=== PATIENT | female | born 1965 | race Caucasian/White ===

== ENCOUNTER → 2016-04-26 | Outpatient (CLI) | payer OTHER ==
[~2016-04-26] MED LIST: /FENT25PA; /FENT75PA; ACET500C PO; ALBUTEROL INHALATION; AMBI10TA PO; AMBIEN10 PO; AMOXIL875 PO; ARTHROTEC; ARTHROTEC PO; AUG875 PO; BACTRIMDS PO; COLA100C2; COMPOUND CREAM TOP; CYMBALTA30 PO; CYMBALTA60 PO; DICL25TA OR; DOXY100T PO; ESTR125TA; FLAG500T OR; FLAGYL250 PO; FLECTOR PATCH; FLEX5TAB3 PO; FLEXERIL PO; FLEXERIL10 PO; GABA-279 PO; HABITROL2 TOPICAL; HYDR-3719 PO; LIDO1DIS2 TD; LIDO5DIS EX; LIDOPOW; MAXALYMLT1 PO; MIDRIN; MOME50SP; MORP30TA2 PO; MS C15TA5 PO; MS C200T PO; MS C30TA PO; NEUR300C; NEUR300C PO; NICO21DI4; OXYC10TA12; OXYC1TAB15 PO; PAMELOR PO; PAXIL20 PO; PREG25CA; PREMARIN TD; REQU0.5T PO; SOMA250T; THERGRAN PO; TRAM50TA2; TYLENOL#3 PO; VICO5TAB; VICO5TAB PO; VITA50003 PO; VITAMIN D50000 UNT PO; VOLT1GEL EX; ZANA4CAP OR; ZITHROM500 PO; ZYRT10CA PO; [UNRECOGNIZED DRUG - OTHER] PO; fentanyl patch TOP; maxalt
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
== END ==
LOC: M PAIN 11:00
PROVIDERS: ATTEND Anesthesiology
DX: M51.16 Intervertebral disc disorders with radiculopathy, lumbar region (principal); M51.17 Intervertebral disc disorders with radiculopathy, lumbosacral region; M47.816 Spondylosis without myelopathy or radiculopathy, lumbar region; M47.817 Spondylosis without myelopathy or radiculopathy, lumbosacral region; Z79.891 Long term (current) use of opiate analgesic; Z79.899 Other long term (current) drug therapy; Z88.0 Allergy status to penicillin; Z88.1 Allergy status to other antibiotic agents; Z88.8 Allergy status to other drugs, medicaments and biological substances

== ENCOUNTER → 2016-05-24 | Outpatient (CLI) | payer OTHER ==
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
== END ==
LOC: M PAIN 14:00
PROVIDERS: ATTEND Anesthesiology
DX: Z09 Encounter for follow-up examination after completed treatment for conditions other than malignant neoplasm (principal); G89.29 Other chronic pain; M51.16 Intervertebral disc disorders with radiculopathy, lumbar region; M51.17 Intervertebral disc disorders with radiculopathy, lumbosacral region; M47.816 Spondylosis without myelopathy or radiculopathy, lumbar region; M47.817 Spondylosis without myelopathy or radiculopathy, lumbosacral region; Z88.0 Allergy status to penicillin; Z91.040 Latex allergy status; Z88.8 Allergy status to other drugs, medicaments and biological substances; Z79.891 Long term (current) use of opiate analgesic; Z79.899 Other long term (current) drug therapy

== ENCOUNTER → 2016-06-15 | Outpatient (CLI) | payer OTHER ==
[~2016-06-15] MED LIST changes: +BUPIVACAINE HCL 0.25% 30 ML VIAL As Ordered ONE; +ISOVUE-M 300 61% 15ML VIAL (Q9967) As Ordered ONE; +LIDOCAINE 1% SDV INJ 30 ML VIAL As Ordered ONE; +TRIAMCINOLONE ACETONIDE SUSP 40 MG/ML VIAL (J3301) As Ordered ONE
--- NOTE | 2016-06-15 16:50 | REP ---
FLUOROSCOPIC GUIDANCE FOR RIGHT SACROILIAC INJECTION: 06/15/2016. Four images from C-arm fluoroscopy provided to Dr. Paez of the pain clinic for right sacroiliac joint. Clinical history: Back pain. Findings: There is a needle in the middle one-third of the region of the right sacroiliac joint on image 1, angled superiorly on image 2 and inferiorly on image 3, again superiorly on image 4. Fluoroscopy time: 8 seconds. Signed by Sedrick Gill MD 06/15/2016 04:54 P
--- NOTE | 2016-06-21 00:43 | ECWPNPC ---
PATIENT NAME: NEENA KIM : 1965 GENDER: FEMALE VISIT DATE: 06/15/2016 DISCHARGE DATE: 06/15/16 1456 VISIT LOCKED DATE TIME: PHYSICIAN: JOSE DIAZ RESOURCE: JOSE DIAZ REASON FOR APPOINTMENT 1. LFBT HISTORY OF PRESENT ILLNESS HISTORY OF PRESENT ILLNESS: PAIN THE PATIENT DESCRIBES THE PAIN... FALL RISK SCREENING: SCREENING :NO FALLS IN THE PAST YEAR CURRENT MEDICATIONS TAKING OXYCODONE-ACETAMINOPHEN 7.5-325 MG TABLET 1 TABLET ORALLY CODE D FOR CHRONIC PAIN 1Q6H MDD4 NEEDED, NOTES: 06-15-16 0700 TAKING MORPHINE SULFATE ER 30 MG TABLET EXTENDED RELEASE 1 TABLET ORALLY CODE D CHRONIC PAIN EVERY 12 HRS MDD=2, NOTES: 06-15-16 0700 TAKING VITAMIN D3 51663 UNIT TABLET ORALLY MONTHLY, NOTES: DUE THIS WEEKEND DISCONTINUED GABAPENTIN 300 MG CAPSULE 1 CAPSULE ORALLY BEFORE BEDTIME FOR PAIN DISCONTINUED ROPINIROLE HCL 2 MG TABLET DIRECTED ORALLY AT HS DISCONTINUED ROPINIROLE HCL 2 MG TABLET 1 TABLET 1 TO 3 HOURS BEFORE BEDTIME ORALLY ONCE A DAY, NOTES: HAS RUN OUT DISCONTINUED ROCEPHIN 1 GM SOLUTION RECONSTITUTED DIRECTED INJECTION QD DISCONTINUED LIDOCAINE HCL 1 % 10ML SOLUTION DIRECTED FOR RECONSTITUTION INJECTION QD DISCONTINUED VALIUM 5 MG TABLET 1 TAB(S) ORALLY QID PRN MDD4 MEDICATION LIST REVIEWED AND RECONCILED WITH THE PATIENT PAST MEDICAL HISTORY NO MAJOR MEDICAL EXCEPT CHRONIC BACK PAIN ALLERGIES ERYTHROMYCIN: RASH, THROAT SWELLING: ALLERGY LATEX (FOR ALLERGY USE ONLY): RASH: ALLERGY PROPOXYPHENE: NAUSEA, VOMITING: SIDE EFFECTS KETOROLAC TROMETHAMINE: NAUSEA, VOMITING: SIDE EFFECTS CELEBREX: NAUSEA: SIDE EFFECTS DURAMYCIN: RASH, THROAT SWELLING: ALLERGY QUINOLONES: RASH, THROAT SWELLING: ALLERGY GABAPENTIN: HEADACHE: SIDE EFFECTS SOCIAL HISTORY GENERAL: TOBACCO USE ARE YOU A:NONSMOKER LEARNING BARRIERS / SPECIAL NEEDS ORIENTED TO PLAN OF CARE: PATIENT, PAIN MANAGEMENT PATIENT, ORIENTED TO PLAN OF CARE: PATIENT, PAIN MANAGEMENT PATIENT. NEW PATIENT PAIN DIARY TODAY'S VISITNOTES FROM 0-10, WHAT LEVEL IS YOUR PAIN TODAY?0 PAIN CLINIC PFS, CLERGY, PUBLIC HEALTH REFERRALS PFS REFERRAL NEEDED?NO CLERGY REFERRAL NEEDED?NO PUBLIC HEALTH REFERRAL NEEDED?NO WAS THE PROVIDER NOTIFIED OF ANY PERTINENT INFO?NO PFS REFERRAL NEEDED?NO CLERGY REFERRAL NEEDED?NO PUBLIC HEALTH REFERRAL NEEDED?NO WAS THE PROVIDER NOTIFIED OF ANY PERTINENT INFO?NO REVIEW OF SYSTEMS CONSTITUTIONAL: ANY CHANGE IN YOUR MEDICAL CONDITION? NO . CHILLS NO . FEVER NO . INFECTION: DO YOU HAVE NEW INFECTIONS? NO . DO YOU HAVE HISTORY OF MRSA? NO . MUSCULOSKELETAL: ANY NEW PATTERNS OF PAIN OR NUMBNESS? NO . GASTROENTEROLOGY: ANY NEW CHANGE IN BOWEL CONTROL? NO . GENITOURINARY: ANY NEW CHANGE IN BLADDER CONTROL? NO . IS THERE A CHANCE YOU COULD BE ? NO . HEMATOLOGY/LYMPH: DO YOU TAKE ANY BLOOD THINNERS? (FOR EXAMPLE- COUMADIN, PLAVIX, AGGRENOX, PLATEL, PRADAXA, OR XARELTO) NO . WHEN WAS YOUR LAST DOSE? DATE: TIME: . NEUROLOGY: HAVE YOU FALLEN IN THE PAST 6 MONTHS? NO . ANY NEW EXTREMITY NUMBNESS OR WEAKNESS? NO . CARDIOLOGY: DO YOU HAVE A PACEMAKER OR DEFIBRILLATOR? NO . RESPIRATORY: HAVE YOU BEEN SICK IN THE PAST WEEK? NO . FEVER NO . FLU LIKE SYMPTOMS? NO . COUGH NO . INTEGUMENTARY: DO YOU HAVE ANY RASHES OR OPEN SORES? NO . ALLERGIC/IMMUNO: ARE YOU ALLERGIC TO SHELLFISH OR IV DYE? NO . ANY NEW ALLERGIES? NO . PSYCHIATRIC: DO YOU HAVE THOUGHTS OF HURTING YOURSELF OR SOMEONE ELSE? NO . ARE YOU ABUSED, NEGLECTED, OR IN AN UNSAFE ENVIRONMENT? NO . ENDOCRINOLOGY: ARE YOU DIABETIC? NO . OTHER: DO YOU NEED ANY PRESCRIPTIONS? NO . IF YES, PLEASE LIST: ____ . ANY NEW PROBLEMS WITH YOUR MEDICATIONS? NO . WHEN DID YOU LAST EAT? 06-14-16 PM . WHEN DID YOU LAST DRINK? 06-15-16 1300 . WHAT DID YOU LAST DRINK? BLACK COFFEE . NAME OF PERSON DRIVING YOU HOME? . DO YOU HAVE ANY OTHER QUESTIONS OR CONCERNS NO . REVIEWED BY: PROVIDER: . VITAL SIGNS WT 150 LBS, HT 67 IN, BMI 23.49 INDEX, BP 133/94 MM HG, HR 63 /MIN, RR 16 /MIN, TEMP 96.0 F, OXYGEN SAT % 96, NA INITIALS TL 1354, REVIEWED BY: CM. ASSESSMENTS SACROILIITIS, NOT ELSEWHERE CLASSIFIED - M46.1 (PRIMARY) PROCEDURES PN SI PRE PROCEDURE DIAGNOSIS SACROILIITIS, SACROILIAC JOINT DYSFUNCTION POST PROCEDURE DIAGNOSIS SACROILIITIS, SACROILIAC JOINT DYSFUNCTION PROCEDURE ., RIGHT SACROILIAC JOINT BLOCK SURGEON DR. JOSE DIAZ [employer]INE ELECTRICIAN APPRENTICE NONE ANESTHESIA LOCAL PRE PROCEDURE NOTE PATIENT WITH HISTORY OF CHRONIC LOW BACK PAIN. I EVALUATED THE PATIENT AND REVIEWED THE CHART. I WENT OVER THE RISKS, ALTERNATIVES, AND BENEFITS ASSOCIATED WITH THIS PROCEDURE. THE PATIENT WOULD LIKE TO PROCEED AND GAVE CONSENT TO PERFORM THE PROCEDURE. THE PATIENT DENIES UNEXPLAINABLE WEIGHT LOSS, FEVER, CHILLS, OR NEW CHANGES IN URINARY OR BOWEL CONTROL. DESCRIPTION OF PROCEDURE THE PATIENT WAS BROUGHT TO THE PROCEDURE ROOM AND PLACED IN THE PRONE POSITION. THE LUMBOSACRAL AREA WAS CLEANED WITH CHLORAPREP SOLUTION AND DRAPED ASEPTICALLY. THE PROCEDURE WAS DONE UNDER STERILE CONDITIONS. I CHECKED LATERALITY AND THE LEVEL WHERE THE PROCEDURE WAS GOING TO BE PERFORMED WITH THE PATIENT AND THE SUPPORTING STAFF AT THE MOMENT OF THE TIME OUT IN THE PROCEDURE ROOM. UNDER FLUOROSCOPIC GUIDANCE, TARGET POINT WAS SELECTED AT THE LOWER BORDER OF THE RIGHT SACROILIAC JOINT. TARGET POINT WAS SELECTED AFTER MEDIAL ROTATION AND TILT OF THE MAGNIFIER OF THE C-ARM. LIDOCAINE WAS USED TO NUMB THE SKIN AND SUBCUTANEOUS TISSUE BELOW IT. A SPINAL NEEDLE, 22-GAUGE, WAS ADVANCED UNDER FLUOROSCOPIC GUIDANCE AND FOLLOWING PATIENT FEEDBACK UNTIL THE TARGET AREA WAS TOUCHED. THE POSITION OF THE NEEDLE WAS VERIFIED WITH AP AND LATERAL VIEWS. AFTER PROPER POSITION OF THE NEEDLE WAS ACHIEVED, ISOVUE M DYE 30%, 0.25 ML, WAS INJECTED SHOWING SPREAD OF THE DYE. THEN, A SOLUTION OF 20 MG OF KENALOG WAS INJECTED IN RIGHT JOINT WITH 3 ML OF BUPIVACAINE 0.125%. THERE WAS NO EVIDENCE OF BLOOD, PARESTHESIA OR CEREBROSPINAL FLUID DURING THE PROCEDURE. THE PATIENT WAS SENT TO THE RECOVERY ROOM. THE PATIENT WAS MOVING THE EXTREMITIES AND DOING WELL. THERE WAS NO COMPLICATION DURING THE PROCEDURE. FLUOROSCOPY TIME WAS 5 SECONDS POST PROCEDURE NOTE THE PATIENT WILL BE SEEN IN A FOLLOW UP IN THE NEXT FEW WEEKS. INSTRUCTIONS WERE GIVEN, QUESTIONS WERE ANSWERED, AND THE PATIENT EXPRESSED UNDERSTANDING AND AGREED WITH THE PLAN. INSTRUCTIONS WERE GIVEN, QUESTIONS WERE ANSWERED, PATIENT REPORTS UNDERSTANDING AND AGREES WITH THE PLAN. I, RAMIREZ CHANG, DOCUMENTED THE ABOVE INFORMATION ACTING A SCRIBE FOR DR. DIAZ. I HAVE REVIEWED THE ABOVE DOCUMENT, WRITTEN BY RAMIREZ CHANG SCRIBAntoine AND I VERIFY THAT IT IS ACCURATE. DIAGNOSTIC IM[facility] FLUORO GUIDANCE (PAIN)[id number] PROCEDURE CODES 12331 INJECT SACROILIAC JOINT 6045F RADXPS IN END [id number] PXD DISPOSITION & COMMUNICATION FOLLOW UP 3 WEEKS ELECTRONICALLY SIGNED BY JOSE DIAZ MD ON 06/20/2016 AT 06:50 AM EST DISCLAIMER : THIS IS A VISIT SUMMARY EXTRACTED FROM THE [employer] CHART. IT IS NOT A COPY OF THE [employer] PROGRESS NOTE. MTDD
== END ==
LOC: M PAIN 14:00
PROVIDERS: ATTEND Anesthesiology
DX: G89.29 Other chronic pain (principal); M46.1 Sacroiliitis, not elsewhere classified; M54.5 Low back pain; Z79.891 Long term (current) use of opiate analgesic; Z79.899 Other long term (current) drug therapy; Z88.1 Allergy status to other antibiotic agents; Z91.040 Latex allergy status; Z88.8 Allergy status to other drugs, medicaments and biological substances
CPT/HCPCS: G0260; J3301; Q9967

== ENCOUNTER → 2016-07-24 | Outpatient (REF) | payer MEDICARE ==
[~2016-07-24] MED LIST changes: -BUPIVACAINE HCL 0.25% 30 ML VIAL As Ordered ONE; -ISOVUE-M 300 61% 15ML VIAL (Q9967) As Ordered ONE; -LIDOCAINE 1% SDV INJ 30 ML VIAL As Ordered ONE; -TRIAMCINOLONE ACETONIDE SUSP 40 MG/ML VIAL (J3301) As Ordered ONE
[2016-07-24 11:20] LABS: BASO % 0.7 % (0.0-1.0); EOS # 0.2 K/mm3 (0.0-0.50); EOS % 3.2 % (0.0-3.0); LARGE UNSTAINED CELL # 0.1 K/mm3 (0.0-0.4); LARGE UNSTAINED CELL % 1.6 % (0.0-4.0); LYMPH # 1.8 K/mm3 (1.5-4.5); LYMPH % 24.8 % (24.0-44.0); MEAN CORPUSCULAR HEMOGLOBIN 29.7 pg (27.0-33.0); MEAN CORPUSCULAR HGB CONC 32.6 g/dl (32.0-36.5); MEAN CORPUSCULAR VOLUME 91.3 fl (80.0-96.0); MONO # 0.4 K/mm3 (0.0-0.8); MONO % 5.2 % (0.0-5.0); NEUTROPHILS # 4.5 K/mm3 (1.8-7.7); NEUTROPHILS % 64.6 % (36.0-66.0); PLATELET COUNT, AUTOMATED 307 k/mm3 (150-450); RED CELL DISTRIBUTION WIDTH 13.4 % (11.5-14.5)
[2016-07-24 11:57] LABS: ALBUMIN/GLOBULIN RATIO 1.38 (1.00-1.93); ALKALINE PHOSPHATASE 96 U/L (45-117); ALT/SGPT 20 U/L (12-78); ANION GAP 5 MEQ/L (8-16); AST/SGOT 18 U/L (15-37); BILIRUBIN,TOTAL 0.3 MG/DL (0.2-1.0); BLOOD UREA NITROGEN 14 MG/DL (7-18); CALCIUM LEVEL 9.5 MG/DL (8.5-10.1); CARBON DIOXIDE LEVEL 30 MEQ/L (21-32); CHLORIDE LEVEL 108 MEQ/L (98-107); CREATININE FOR GFR 0.81 MG/DL (0.55-1.02); GLOMERULAR FILTRATION RATE > 60.0 (>58); GLUCOSE, FASTING 91 MG/DL (70-105); MAGNESIUM LEVEL 2.3 MG/DL (1.8-2.4); POTASSIUM SERUM 4.5 MEQ/L (3.5-5.1); SODIUM LEVEL 143 MEQ/L (136-145); TOTAL PROTEIN 6.9 GM/DL (6.4-8.2)
[2016-07-24 12:09] LABS: ERYTHROCYTE SEDIMENTATION RATE 4 mm/hr (0-20)
[2016-07-27 08:06] LABS: Lyme Disease IgG Ab 18 kDa Ban Absent (.); Lyme Disease IgG Ab 23 kDa Ban Absent (.); Lyme Disease IgG Ab 28 kDa Ban Absent (.); Lyme Disease IgG Ab 30 kDa Ban Absent (.); Lyme Disease IgG Ab 39 kDa Ban Absent (.); Lyme Disease IgG Ab 41 kDa Ban Absent (.); Lyme Disease IgG Ab 45 kDa Ban Absent (.); Lyme Disease IgG Ab 58 kDa Ban Absent (.); Lyme Disease IgG Ab 66 kDa Ban Absent (.); Lyme Disease IgG Ab 93 kDa Ban Absent (.); Lyme Disease IgG West Blot Int Negative (.); Lyme Disease IgG/IgM Antibodie <0.91 ISR (0.00-0.90); Lyme Disease IgM Ab 23 kDa Ban Absent (.); Lyme Disease IgM Ab 39 kDa Ban Absent (.); Lyme Disease IgM Ab 41 kDa Ban Absent (.); Lyme Disease IgM Ab Quantitati 2.31 index (0.00-0.79); Lyme Disease IgM West Blot Int Negative (.)
== END ==
LOC: M SFHCPLAZ 10:22
PROVIDERS: ATTEND Internal Medicine Infectious Disease
DX: M25.50 Pain in unspecified joint (principal); R61 Generalized hyperhidrosis; R76.8 Other specified abnormal immunological findings in serum
CPT/HCPCS: 36415; 80053; 83735; 85025; 85652; 86038; 86140; 86200; 86431; 86617; 87040; G0463

== ENCOUNTER → 2016-08-03 | Outpatient (CLI) | payer MEDICARE ==
--- NOTE | 2016-08-03 16:00 | REP ---
MRI BRAIN WITHOUT CONTRAST: HISTORY: Headache. There are no areas of abnormal signal intensity in the brain. There is no intraparenchymal hemorrhage, infarct, mass or midline shift. The ventricular system is normal in appearance. There is no extracerebral collection. The visualized sinuses are clear. IMPRESSION: There is no intracranial lesion. Signed by Mayo Coronado MD 08/03/2016 04:04 P
== END ==
LOC: M RAD 14:27
PROVIDERS: ATTEND Internal Medicine Infectious Disease
DX: R51 Headache (principal)

== ENCOUNTER → 2016-09-20 | Outpatient (CLI) | payer OTHER, MEDICARE ==
--- NOTE | 2016-10-02 02:37 | ECWPNPC ---
PATIENT NAME: NEENA KIM : 1965 GENDER: FEMALE VISIT DATE: 09/20/2016 DISCHARGE DATE: 09/20/16 1621 VISIT LOCKED DATE TIME: PHYSICIAN: JOSE DIAZ RESOURCE: JOSE DIAZ REASON FOR APPOINTMENT 1. BACK HISTORY OF PRESENT ILLNESS GENERAL: 50 YEAR OLD FEMALE PATIENT WITH HISTORY OF CHRONIC BACK PAIN. PATIENT DESCRIBES THE PAIN SHARP, THROBBING, AND HAVING IT ALL THE TIME WITH A PAIN SCORE OF 7/10 ON TODAY'S VISIT. 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 PATIENT REPORTS THAT SHE DOES SOME PT EXERCISES AT HOME. PATIENT RECEIVED A RIGHT SACROILIAC JOINT BLOCK ON 06/15/2016 AND STATES THAT SHE HAD OVER 3 MONTHS OF PAIN RELIEF, WITH OVER 50 PERCENT IN DECREASE IN PAIN WITH INCREASE MOBILITY AND FUNCTIONALITY. PATIENT STATES THAT AT THIS TIME THE PAIN HAS RETURNED AND INQUIRED WHETHER SHE COULD GET ANOTHER INJECTION. PATIENT DENIES UNEXPLAINABLE WEIGHT LOSS, FEVER, CHILLS, NEW CHANGES ON HER URINARY OR BOWEL CONTROL. CURRENT MEDICATIONS TAKING VITAMIN D3 91075 UNIT TABLET ORALLY MONTHLY, NOTES: DUE THIS WEEKEND TAKING MORPHINE SULFATE ER 30 MG TABLET EXTENDED RELEASE 1 TABLET ORALLY CODE D CHRONIC PAIN EVERY 12 HRS MDD=2, NOTES: 06-15-16 0700 TAKING OXYCODONE-ACETAMINOPHEN 7.5-325 MG TABLET 1 TABLET ORALLY 1Q6H MDD4 NEEDED, NOTES: 06-15-16 0700 MEDICATION LIST REVIEWED AND RECONCILED WITH THE PATIENT PAST MEDICAL HISTORY NO MAJOR MEDICAL EXCEPT CHRONIC BACK PAIN LYME DISEASE PER ALLERGIES ERYTHROMYCIN: RASH, THROAT SWELLING: ALLERGY LATEX (FOR ALLERGY USE ONLY): RASH: ALLERGY PROPOXYPHENE: NAUSEA, VOMITING: SIDE EFFECTS KETOROLAC TROMETHAMINE: NAUSEA, VOMITING: SIDE EFFECTS CELEBREX: NAUSEA: SIDE EFFECTS DURAMYCIN: RASH, THROAT SWELLING: ALLERGY QUINOLONES: RASH, THROAT SWELLING: ALLERGY GABAPENTIN: HEADACHE: SIDE EFFECTS VITAL SIGNS WT 155.6 LBS, HT 67 IN, BMI 24.37 INDEX, BP 142/84 MM HG, HR 51 /MIN, RR 18 /MIN, TEMP 98.0 F, OXYGEN SAT % 99%, NA INITIALS SC 15:50, REVIEWED BY: KG. EXAMINATION GENERAL: PATIENT IS ALERT O X 3 AND COOPERATIVE. THERE IS TENDERNESS IN THE SACROILIAC JOINTS. FABERE TEST IS POSITIVE ON THE RIGHT SIDE. ASSESSMENTS SACROILIITIS, NOT ELSEWHERE CLASSIFIED - M46.1 (PRIMARY) TREATMENT SACROILIITIS, NOT ELSEWHERE CLASSIFIED NOTES: WE DISCUSSED SEVERAL ISSUES WITH MS. KIM'S PAIN MANAGEMENT CASE. AT THIS TIME THE PATIENT WILL RECEIVE A REFILL OF MORPHINE AND OXYCODONE, PATIENT IS TAKING THESE MEDICATIONS FOR THE SOMATIC PAIN. DUE TO THE PREVIOUS INJECTION PROVIDING GOOD PAIN RELIEF FOR THE PATIENT FOR 3 MONTHS, AFTER EXAMINING THE PATIENT SHE IS A GOOD CANDIDATE FOR ANOTHER RIGHT SACROILIAC INJECTION. WE DISCUSSED THE RISK, BENEFITS, AND ALTERNATIVES AND THE PATIENT WOULD LIKE TO PROCEED. PATIENT WILL BE BOOKED PENDING APPROVAL. PATIENT WILL FOLLOW UP WITH ME IN 3 WEEKS. UTOX DONE ON 01/22/2016 SHOWS CONSISTENT RESULTS. PATIENT DID NOT BRING HER MEDICATIONS TODAY AND WAS ADVISED TO DO SO FOR EVERY FOLLOW UP VISIT. INSTRUCTIONS WERE GIVEN, QUESTIONS WERE ANSWERED, PATIENT REPORTS UNDERSTANDING AND AGREES WITH THE PLAN. I, RAMIREZ CHANG, DOCUMENTED THE ABOVE INFORMATION ACTING A SCRIBE FOR DR. DIAZ. I HAVE REVIEWED THE ABOVE DOCUMENT, WRITTEN BY RAMIREZ CHANG SCRIBAntoine AND I VERIFY THAT IT IS ACCURATE. OTHERS REFILL MORPHINE SULFATE ER TABLET EXTENDED RELEASE, 30 MG, 1 TABLET, ORALLY CODE D CHRONIC PAIN, EVERY 12 HRS MDD=2, 30 DAY(S), 60, REFILLS 0, NOTES: 06-15-16 0700 REFILL OXYCODONE-ACETAMINOPHEN TABLET, 7.5-325 MG, 1 TABLET, ORALLY, 1Q6H MDD4 NEEDED, 30 DAY(S), 90, REFILLS 0, NOTES: 06-15-16 0700 PROCEDURES PN WORKMANS' COMP OPINION IN YOUR OPINION, WAS THE INCIDENT THAT THE PATIENT DESCRIBED THE COMPETENT MEDICAL CAUSE OF THIS INJURY/ILLNESS? YES ARE THE PATIENT'S COMPLAINTS CONSISTENT WITH HIS/HER HISTORY OF THE INJURY/ILLNESS? YES IS THE PATIENT'S HISTORY OF THE INJURY/ILLNESS CONSISTENT WITH YOUR OBJECTIVE FINDING? YES WHAT IS THE PERCENTAGE OF TEMPORARY IMPAIRMENT? MODERATE TO MARKED = 66.7% IS THE PATIENT WORKING? YES DOCTOR ON SITE: JOSE BUSTAMANTE MD PREVENTIVE MEDICINE SIJ INFORMATION REVIEWED WITH PT. PROCEDURE CODES FA211 ESTABILISHED PATIENT [facility] FACILITY CHARGE G5617 PAIN ASSESS POS TOOL F/U PLAN DOC G8427 DOC MEDS VERIFIED W/PT OR RE DISPOSITION & COMMUNICATION FOLLOW UP 3 WEEKS ELECTRONICALLY SIGNED BY JOSE DIAZ MD ON 10/01/2016 AT 03:29 PM EDT DISCLAIMER : THIS IS A VISIT SUMMARY EXTRACTED FROM THE [employer] CHART. IT IS NOT A COPY OF THE [employer] PROGRESS NOTE. ALD
== END ==
LOC: M PAIN 15:00
PROVIDERS: ATTEND Anesthesiology
DX: G89.29 Other chronic pain (principal); M46.1 Sacroiliitis, not elsewhere classified; R76.8 Other specified abnormal immunological findings in serum; Z91.040 Latex allergy status; Z88.1 Allergy status to other antibiotic agents; Z88.8 Allergy status to other drugs, medicaments and biological substances; Z79.891 Long term (current) use of opiate analgesic; Z79.899 Other long term (current) drug therapy

== ENCOUNTER → 2016-10-12 | Outpatient (CLI) | payer OTHER, MEDICARE ==
[~2016-10-12] MED LIST changes: -MS C30TA PO; +MS C30TA6 PO; -REQU0.5T PO; +REQU1TAB15 PO; +VITA1CAP40 PO; -VITA50003 PO
--- NOTE | 2016-10-21 23:58 | ECWPNPC ---
PATIENT NAME: NEENA KIM : 1965 GENDER: FEMALE VISIT DATE: 10/12/2016 DISCHARGE DATE: 10/12/16 1500 VISIT LOCKED DATE TIME: PHYSICIAN: JOSE DIAZ RESOURCE: JOSE DIAZ REASON FOR APPOINTMENT 1. W/C BACK PAIN HISTORY OF PRESENT ILLNESS HISTORY OF PRESENT ILLNESS: PAIN THE PATIENT DESCRIBES THE PAIN... 50 YEAR OLD FEMALE PATIENT WITH HISTORY OF CHRONIC BACK PAIN. PATIENT DESCRIBES THE PAIN SHARP, THROBBING, AND HAVING IT ALL THE TIME WITH A PAIN SCORE OF 7/10 ON TODAY'S VISIT. 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 PATIENT REPORTS THAT SHE DOES SOME PHYSICAL THERAPY EXERCISES AT HOME. PATIENT IS CURRENTLY WAITING FOR A SACROILIAC JOINT INJECTION APPROVAL. PATIENT DENIES UNEXPLAINABLE WEIGHT LOSS, FEVER, CHILLS, NEW CHANGES ON HER URINARY OR BOWEL CONTROL. FALL RISK SCREENING: SCREENING :NO FALLS IN THE PAST YEAR CURRENT MEDICATIONS TAKING VITAMIN D3 09489 UNIT TABLET ORALLY MONTHLY TAKING MORPHINE SULFATE ER 30 MG TABLET EXTENDED RELEASE 1 TABLET ORALLY CODE D CHRONIC PAIN EVERY 12 HRS MDD=2 TAKING OXYCODONE-ACETAMINOPHEN 7.5-325 MG TABLET 1 TABLET ORALLY 1Q6H MDD4 NEEDED TAKING LORATADINE 10 MG TABLET 1 TABLET ORALLY ONCE A DAY MEDICATION LIST REVIEWED AND RECONCILED WITH THE PATIENT PAST MEDICAL HISTORY NO MAJOR MEDICAL EXCEPT CHRONIC BACK PAIN LYME DISEASE PER NEWLY DIAGNOSED ALLERGIC TO HAY 09/2016 ALLERGIES ERYTHROMYCIN: RASH, THROAT SWELLING: ALLERGY LATEX (FOR ALLERGY USE ONLY): RASH: ALLERGY PROPOXYPHENE: NAUSEA, VOMITING: SIDE EFFECTS KETOROLAC TROMETHAMINE: NAUSEA, VOMITING: SIDE EFFECTS CELEBREX: NAUSEA: SIDE EFFECTS DURAMYCIN: RASH, THROAT SWELLING: ALLERGY QUINOLONES: RASH, THROAT SWELLING: ALLERGY GABAPENTIN: HEADACHE: SIDE EFFECTS REVIEW OF SYSTEMS REVIEWED BY: PROVIDER: JOSE DIAZ MD . CONSTITUTIONAL: ANY CHANGE IN YOUR MEDICAL CONDITION? NO . CHILLS NO . FEVER NO . INFECTION: DO YOU HAVE NEW INFECTIONS? NO . DO YOU HAVE HISTORY OF MRSA? NO . MUSCULOSKELETAL: ANY NEW PATTERNS OF PAIN OR NUMBNESS? YES . GASTROENTEROLOGY: ANY NEW CHANGE IN BOWEL CONTROL? NO . GENITOURINARY: ANY NEW CHANGE IN BLADDER CONTROL? NO . IS THERE A CHANCE YOU COULD BE ? NO . HEMATOLOGY/LYMPH: DO YOU TAKE ANY BLOOD THINNERS? (FOR EXAMPLE- COUMADIN, PLAVIX, AGGRENOX, PLATEL, PRADAXA, OR XARELTO) NO . WHEN WAS YOUR LAST DOSE? DATE: TIME: . NEUROLOGY: HAVE YOU FALLEN IN THE PAST 6 MONTHS? NO . ANY NEW EXTREMITY NUMBNESS OR WEAKNESS? NO . CARDIOLOGY: DO YOU HAVE A PACEMAKER OR DEFIBRILLATOR? NO . RESPIRATORY: HAVE YOU BEEN SICK IN THE PAST WEEK? NO . FEVER NO . FLU LIKE SYMPTOMS? NO . COUGH NO . INTEGUMENTARY: DO YOU HAVE ANY RASHES OR OPEN SORES? NO . ALLERGIC/IMMUNO: ARE YOU ALLERGIC TO SHELLFISH OR IV DYE? NO . ANY NEW ALLERGIES? NO . PSYCHIATRIC: DO YOU HAVE THOUGHTS OF HURTING YOURSELF OR SOMEONE ELSE? NO . ARE YOU ABUSED, NEGLECTED, OR IN AN UNSAFE ENVIRONMENT? NO . ENDOCRINOLOGY: ARE YOU DIABETIC? NO . OTHER: DO YOU NEED ANY PRESCRIPTIONS? NO . IF YES, PLEASE LIST: ____ . ANY NEW PROBLEMS WITH YOUR MEDICATIONS? NO . WHEN DID YOU LAST EAT? ____ . WHEN DID YOU LAST DRINK? ____ . WHAT DID YOU LAST DRINK? ____ . NAME OF PERSON DRIVING YOU HOME? ____ . DO YOU HAVE ANY OTHER QUESTIONS OR CONCERNS LEFT HIP PAIN, . VITAL SIGNS WT 152 LBS, HT 67 IN, BMI 23.80 INDEX, BP 142/87 MM HG, HR 54 /MIN, RR 18 /MIN, TEMP 97.3 F, OXYGEN SAT % 100%, NA INITIALS AW 1436, REVIEWED BY: NL. EXAMINATION : PATIENT IS ALERT O X 3 AND COOPERATIVE. THERE IS TENDERNESS IN THE SACROILIAC JOINTS. FABERE TEST IS POSITIVE ON THE RIGHT SIDE. 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 KIM'S PAIN MANAGEMENT CASE. AT THIS TIME THE PATIENT WILL CONTINUE WITH THE SAME MEDICATION REGIME BEFORE. PATIENT IS USING THE MORPHINE SULFATE AND OXYCODONE FOR THE SOMATIC PAIN. PATIENT BROUGHT MEDICATIONS TO TODAY'S VISIT. PATIENT DENIES ABUSE OF ANY MEDICATION, DENIES USE OF ILLEGAL SUBSTANCES, AND STATES SHE IS ONLY USING THE MEDICATION FOR PAIN MANAGEMENT. URINE TOXICOLOGY REPORT DONE ON 01/11/16 SHOWS CONSISTENT RESULTS WITH THE PATIENT'S MEDICATION LIST. PATIENT WILL PROVIDE A URINE SAMPLE TODAY. DUE TO THE PAIN IN THE SACROILIAC JOINT AND THE FABERE TEST BEING POSITIVE FOR PAIN I WOULD LIKE TO MOVE FORWARD WITH THE SACROILIAC JOINT INJECTION. AT THIS TIME WE ARE WAITING APPROVAL. WE DISCUSSED THE RISKS, BENENFITS, AND ALTNERATIVES OF THE INJECTION AND THE PATIENT WOULD LIKE TO PROCEED AT THIS TIME. INSTRUCTIONS WERE GIVEN, QUESTIONS WERE ANSWERED, PATIENT REPORTS UNDERSTANDING AND AGREES WITH THE PLAN. I, KIRILL MULLIGAN, DOCUMENTED THE ABOVE INFORMATION ACTING A SCRIBE FOR DR. DIAZ. I HAVE REVIEWED THE ABOVE DOCUMENT, WRITTEN BY KIRILL CUNNINGHAMIBAntoine AND I VERIFY THAT IT IS ACCURATE. OTHERS REFILL MORPHINE SULFATE ER TABLET EXTENDED RELEASE, 30 MG, 1 TABLET, ORALLY CODE D CHRONIC PAIN, EVERY 12 HRS MDD=2, 30 DAY(S), 60, REFILLS 0, NOTES: [id number] REFILL OXYCODONE-ACETAMINOPHEN TABLET, 7.5-325 MG, 1 TABLET, ORALLY FOR PAIN, 1Q6H MDD4 NEEDED, 30 DAY(S), 110, REFILLS 0, NOTES: [id number] PROCEDURES PN WORKMANS' COMP OPINION IN YOUR OPINION, WAS THE INCIDENT THAT THE PATIENT DESCRIBED THE COMPETENT MEDICAL CAUSE OF THIS INJURY/ILLNESS? YES ARE THE PATIENT'S COMPLAINTS CONSISTENT WITH HIS/HER HISTORY OF THE INJURY/ILLNESS? YES IS THE PATIENT'S HISTORY OF THE INJURY/ILLNESS CONSISTENT WITH YOUR OBJECTIVE FINDING? YES WHAT IS THE PERCENTAGE OF TEMPORARY IMPAIRMENT? MODERATE TO MARKED = 66.7% IS THE PATIENT WORKING? NO DOCTOR ON SITE: JOSE BUSTAMANTE MD PROCEDURE CODES FA211 ESTABILISHED PATIENT [facility] FACILITY CHARGE G8427 DOC MEDS VERIFIED W/PT OR RE G8730 PAIN ASSESS POS TOOL F/U PLAN DOC DISPOSITION & COMMUNICATION FOLLOW UP SIJ AFTER APPROVAL ELECTRONICALLY SIGNED BY JOSE DIAZ MD ON 10/21/2016 AT 07:33 PM EDT DISCLAIMER : THIS IS A VISIT SUMMARY EXTRACTED FROM THE [employer] CHART. IT IS NOT A COPY OF THE [employer] PROGRESS NOTE. MTDD
== END ==
LOC: M PAIN 14:40
PROVIDERS: ATTEND Anesthesiology
DX: M46.1 Sacroiliitis, not elsewhere classified (principal); M51.16 Intervertebral disc disorders with radiculopathy, lumbar region; M51.17 Intervertebral disc disorders with radiculopathy, lumbosacral region; M54.9 Dorsalgia, unspecified; G89.29 Other chronic pain; Z79.891 Long term (current) use of opiate analgesic; Z79.899 Other long term (current) drug therapy; Z88.0 Allergy status to penicillin; Z88.8 Allergy status to other drugs, medicaments and biological substances; Z91.040 Latex allergy status

== ENCOUNTER → 2017-02-20 | Outpatient (CLI) | payer OTHER, MEDICARE ==
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
== END ==
LOC: M PAIN 15:30
PROVIDERS: ATTEND Anesthesiology
DX: M46.1 Sacroiliitis, not elsewhere classified (principal); M51.16 Intervertebral disc disorders with radiculopathy, lumbar region; M51.17 Intervertebral disc disorders with radiculopathy, lumbosacral region; G89.29 Other chronic pain; F17.210 Nicotine dependence, cigarettes, uncomplicated; Z79.891 Long term (current) use of opiate analgesic; Z79.899 Other long term (current) drug therapy; Z88.0 Allergy status to penicillin; Z88.8 Allergy status to other drugs, medicaments and biological substances; Z91.040 Latex allergy status

== ENCOUNTER → 2017-05-03 | Outpatient (CLI) | payer OTHER, MEDICARE | LOC: M PAIN 16:00 | DX: Z53.29 Procedure and treatment not carried out because of patient's decision for other reasons (principal) ==

== ENCOUNTER → 2017-05-28 | Outpatient (CLI) | payer OTHER, MEDICARE | LOC: M PAIN 15:15 | DX: M46.1 Sacroiliitis, not elsewhere classified (principal); M51.16 Intervertebral disc disorders with radiculopathy, lumbar region; M51.17 Intervertebral disc disorders with radiculopathy, lumbosacral region; G89.29 Other chronic pain; J30.1 Allergic rhinitis due to pollen; F17.210 Nicotine dependence, cigarettes, uncomplicated; Z79.891 Long term (current) use of opiate analgesic; Z79.899 Other long term (current) drug therapy; Z88.1 Allergy status to other antibiotic agents; Z88.8 Allergy status to other drugs, medicaments and biological substances; Z91.040 Latex allergy status; Z86.19 Personal history of other infectious and parasitic diseases | CPT/HCPCS: G0463 ==

== ENCOUNTER → 2017-08-29 | Outpatient (CLI) | payer OTHER | LOC: M PAIN 11:15 | DX: G89.29 Other chronic pain (principal); M46.1 Sacroiliitis, not elsewhere classified; J30.1 Allergic rhinitis due to pollen; F17.210 Nicotine dependence, cigarettes, uncomplicated; Z95.0 Presence of cardiac pacemaker; Z79.891 Long term (current) use of opiate analgesic; Z79.899 Other long term (current) drug therapy; Z88.1 Allergy status to other antibiotic agents; Z88.8 Allergy status to other drugs, medicaments and biological substances; Z91.040 Latex allergy status | CPT/HCPCS: G0463 ==

== ENCOUNTER → 2017-10-09 | Outpatient (CLI) | payer OTHER | LOC: M PAIN 11:30 | DX: M46.1 Sacroiliitis, not elsewhere classified (principal); G89.29 Other chronic pain; J30.2 Other seasonal allergic rhinitis; Z95.0 Presence of cardiac pacemaker; F17.210 Nicotine dependence, cigarettes, uncomplicated; Z79.891 Long term (current) use of opiate analgesic; Z79.899 Other long term (current) drug therapy; Z88.1 Allergy status to other antibiotic agents; Z88.8 Allergy status to other drugs, medicaments and biological substances; Z91.040 Latex allergy status; Z86.19 Personal history of other infectious and parasitic diseases | CPT/HCPCS: G0463 ==

== ENCOUNTER → 2017-12-20 | Outpatient (CLI) | payer OTHER | LOC: M PAIN 13:00 | DX: M46.1 Sacroiliitis, not elsewhere classified (principal); F17.210 Nicotine dependence, cigarettes, uncomplicated; J30.1 Allergic rhinitis due to pollen; Z90.49 Acquired absence of other specified parts of digestive tract; Z95.0 Presence of cardiac pacemaker; Z79.891 Long term (current) use of opiate analgesic; Z88.1 Allergy status to other antibiotic agents; Z88.8 Allergy status to other drugs, medicaments and biological substances; Z91.040 Latex allergy status | CPT/HCPCS: G0463 ==

== ENCOUNTER → 2018-02-13 | Outpatient (CLI) | payer OTHER | LOC: M PAIN 10:45 | DX: M54.41 Lumbago with sciatica, right side (principal); G89.29 Other chronic pain; J30.2 Other seasonal allergic rhinitis; F17.210 Nicotine dependence, cigarettes, uncomplicated; Z79.891 Long term (current) use of opiate analgesic; Z79.899 Other long term (current) drug therapy; Z88.1 Allergy status to other antibiotic agents; Z88.8 Allergy status to other drugs, medicaments and biological substances; Z91.040 Latex allergy status; Z92.0 Personal history of contraception; Z86.19 Personal history of other infectious and parasitic diseases | CPT/HCPCS: G0463 ==

== ENCOUNTER → 2018-03-27 | Outpatient (CLI) | payer OTHER ==
[~2018-03-27] MED LIST changes: +GABA-1171 PO; -GABA-279 PO; +REQU0.5T PO; -REQU1TAB15 PO; -VITA1CAP40 PO; +VITA50005 PO
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
== END ==
LOC: M PAIN 13:30
PROVIDERS: ATTEND Nurse Practitioner Family
DX: M54.41 Lumbago with sciatica, right side (principal); G89.29 Other chronic pain; J30.2 Other seasonal allergic rhinitis; F17.210 Nicotine dependence, cigarettes, uncomplicated; Z79.891 Long term (current) use of opiate analgesic; Z79.899 Other long term (current) drug therapy; Z88.1 Allergy status to other antibiotic agents; Z88.8 Allergy status to other drugs, medicaments and biological substances; Z91.040 Latex allergy status; Z95.0 Presence of cardiac pacemaker; Z86.19 Personal history of other infectious and parasitic diseases

== ENCOUNTER → 2018-06-24 | Outpatient (CLI) | payer OTHER | LOC: M PAIN 13:15 | PROVIDERS: ATTEND Nurse Practitioner Family | DX: M54.5 Low back pain (principal); Z53.8 Procedure and treatment not carried out for other reasons ==

== ENCOUNTER → 2018-08-21 | Outpatient (CLI) | payer OTHER ==
[~2018-08-21] MED LIST changes: -/FENT25PA; -/FENT75PA; +FENT1DIS14; +FENT1DIS16
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
== END ==
LOC: M PAIN 14:30
PROVIDERS: ATTEND Nurse Practitioner Family
DX: M54.41 Lumbago with sciatica, right side (principal); G89.29 Other chronic pain; Z95.0 Presence of cardiac pacemaker; F17.210 Nicotine dependence, cigarettes, uncomplicated; Z88.1 Allergy status to other antibiotic agents; Z88.8 Allergy status to other drugs, medicaments and biological substances; Z91.040 Latex allergy status; Z79.891 Long term (current) use of opiate analgesic; Z79.899 Other long term (current) drug therapy

== ENCOUNTER → 2018-11-14 | Outpatient (CLI) | payer OTHER ==
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
== END ==
LOC: M PAIN 13:45
PROVIDERS: ATTEND Nurse Practitioner Family
DX: M54.41 Lumbago with sciatica, right side (principal); G89.29 Other chronic pain; Z95.0 Presence of cardiac pacemaker; F17.210 Nicotine dependence, cigarettes, uncomplicated; Z88.1 Allergy status to other antibiotic agents; Z88.5 Allergy status to narcotic agent; Z88.6 Allergy status to analgesic agent; Z88.8 Allergy status to other drugs, medicaments and biological substances; Z91.040 Latex allergy status; Z79.891 Long term (current) use of opiate analgesic; Z79.899 Other long term (current) drug therapy

== ENCOUNTER → 2018-12-16 | Outpatient (CLI) | payer OTHER ==
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
== END ==
LOC: M PAIN 13:30
PROVIDERS: ATTEND Family Medicine
DX: M51.16 Intervertebral disc disorders with radiculopathy, lumbar region (principal); G89.29 Other chronic pain; Z95.0 Presence of cardiac pacemaker; F17.210 Nicotine dependence, cigarettes, uncomplicated; Z88.1 Allergy status to other antibiotic agents; Z88.5 Allergy status to narcotic agent; Z88.8 Allergy status to other drugs, medicaments and biological substances; Z91.040 Latex allergy status; Z79.891 Long term (current) use of opiate analgesic; Z79.899 Other long term (current) drug therapy

== ENCOUNTER → 2019-05-27 | Outpatient (CLI) | payer OTHER ==
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
== END ==
LOC: M PAIN 13:45
PROVIDERS: ATTEND Family Medicine
DX: M51.16 Intervertebral disc disorders with radiculopathy, lumbar region (principal); F17.210 Nicotine dependence, cigarettes, uncomplicated; Z79.891 Long term (current) use of opiate analgesic; Z88.1 Allergy status to other antibiotic agents; Z88.8 Allergy status to other drugs, medicaments and biological substances; Z91.040 Latex allergy status

== ENCOUNTER → 2019-08-20 | Outpatient (CLI) | payer OTHER ==
--- NOTE | 2019-09-29 03:53 | ECWPNPC ---
PATIENT NAME: NEENA KIM : 1965 GENDER: FEMALE VISIT DATE: 08/20/2019 DISCHARGE DATE: 08/20/19833 VISIT LOCKED DATE TIME: PHYSICIAN: EDMUNDO BELLA RESOURCE: EDMUNDO BELLA REASON FOR APPOINTMENT 1. UTOX ONLY ALLERGIES NO[ALLERGIES VERIFIED] VITAL SIGNS WT 163 LBS, HT 67 IN, BMI 25.53 INDEX, TEMP 97.0 F. ASSESSMENTS CHRONIC PRESCRIPTION OPIATE USE - Z79.891 TREATMENT CHRONIC PRESCRIPTION OPIATE USE LAB: PAIN CENTER URINE TOX (SEND OUT) (ORDERED FOR 08/21/2019) PROCEDURE CODES 96187 NO CHARGE VISIT DISPOSITION & COMMUNICATION ELECTRONICALLY SIGNED BY LEDY EVANS ON 09/28/2019 AT 02:17 PM EDT DISCLAIMER : THIS IS A VISIT SUMMARY EXTRACTED FROM THE [employer] CHART. IT IS NOT A COPY OF THE [employer] PROGRESS NOTE. KEENA
== END ==
LOC: M PAIN 14:30
PROVIDERS: ATTEND Family Medicine
DX: Z79.891 Long term (current) use of opiate analgesic (principal)

== ENCOUNTER → 2019-08-25 | Outpatient (CLI) | payer OTHER ==
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
== END ==
LOC: M PAIN 11:00
PROVIDERS: ATTEND Family Medicine
DX: M51.16 Intervertebral disc disorders with radiculopathy, lumbar region (principal)

== ENCOUNTER → 2019-11-19 | Outpatient (CLI) | payer OTHER | LOC: M PAIN 09:15 | PROVIDERS: ATTEND Family Medicine | DX: M51.16 Intervertebral disc disorders with radiculopathy, lumbar region (principal) ==

== ENCOUNTER → 2020-01-15 | Outpatient (CLI) | payer OTHER ==
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
== END ==
LOC: M PAIN 10:15
PROVIDERS: ATTEND Family Medicine
DX: M46.1 Sacroiliitis, not elsewhere classified (principal); G89.29 Other chronic pain; F17.210 Nicotine dependence, cigarettes, uncomplicated; Z95.0 Presence of cardiac pacemaker; Z88.1 Allergy status to other antibiotic agents; Z88.6 Allergy status to analgesic agent; Z88.8 Allergy status to other drugs, medicaments and biological substances; Z91.040 Latex allergy status; Z79.891 Long term (current) use of opiate analgesic; Z79.899 Other long term (current) drug therapy

== ENCOUNTER → 2020-07-08 | Outpatient (CLI) | payer OTHER ==
--- NOTE | 2020-07-12 06:21 | ECWPNPC ---
PATIENT NAME: NEENA KIM : 1965 GENDER: FEMALE VISIT DATE: 07/08/2020 DISCHARGE DATE: 07/08/20 1505 VISIT LOCKED DATE TIME: PHYSICIAN: EDMUNDO BELLA RESOURCE: EDMUNDO BELLA REASON FOR APPOINTMENT 1. LOW BACK/WANTS PROCEDURE HISTORY OF PRESENT ILLNESS GENERAL: - 54-YEAR-OLD FEMALE IN FOR CHRONIC PAIN FOLLOW-UP. SHE RATES HER PAIN CURRENTLY AT A 6 OUT OF 10 AND DESCRIBES IT ACHING AND CONTINUOUS. SHE FEELS MEDICATIONS ARE HELPFUL AND DENIES MED SIDE EFFECTS AT THIS TIME. THIS IS A WORK RELATED INJURY WITH DOI 2000. FALL RISK SCREENING: SCREENING : ONE FALL WITH INJURY IN THE PAST YEAR PT STATES SHE HURT HER RIGHT HIP AND RIGHT LEG. PT DID NOT SEEK MEDICAL TREATMENT.. PAIN SCREENING: PATIENT HAS A COMPLAINT OF ACUTE OR CHRONIC PAIN :YES LOCATION OF PAIN:LOW BACK, LEFT HIP, RIGHT HIP, LEG(S) INTENSITY OF PAIN (SCALE OF 1 TO 10):6 WHAT DOES YOUR PAIN FEEL LIKE:ACHING, CONTINOUS DURATION:CONTINOUS, ALL DAY, AWAKENS FROM SLEEP PAIN IS INCREASED BY:ACTIVITIES, PROLONGED STANDING PAIN IS DECREASED BY:USE OF PAIN MEDICATIONS, OTHERS PLAN/GOALS/TREATMENT/INTERVENTION/FOLLOW UP:SEE PLAN NURSING NOTE: -. PAIN CENTER INTAKE QUESTIONS: DO YOU HAVE A HISTORY OF MRSA? :NO DO YOU TAKE A BLOOD THINNERS? :NO DO YOU HAVE ANY BLEEDING DISORDERS? :NO ANY NEW NUMBNESS OR WEAKNESS IN YOUR LEGS OR ARMS? :YES RIGHT LEG ANY PACEMAKER,DEFIBRILLATOR, OR DORSAL COLUMN STIMULATOR? :YES PT STATES SHE HAS A PACEMAKER. DO YOU HAVE ANY RASHES OR OPEN SORES? :NO ARE YOU ALLERGIC TO IV DYE? :NO ARE YOU DIABETIC? :NO ANY NEW PROBLEMS WITH YOUR MEDICATIONS? :NO HAVE YOU RECEIVED A VACCINE IN THE PAST 30 DAYS? :YES IF SO WHAT VACCINE AND WHEN? TETANUS BOOSTER DOG BITE APRIL. DO YOU PLAN TO RECEIVE A VACCINE IN THE NEXT 21 DAYS? :NO DO YOU NEED ANY PRESCRIPTION? :YES PT NEEDS A REFILL ON OXYCODONE AND MORPHINE. DO YOU TAKE ANY IMMUNOSUPPRESSIVE MEDICATIONS? :NO IS THERE A CHANCE YOU COULD BE ? :NO ARE YOU BREAST FEEDING? :NO CURRENT MEDICATIONS TAKING VITAMIN D3 48637 UNIT TABLET ORALLY MONTHLY TAKING LORATADINE 10 MG TABLET 1 TABLET ORALLY ONCE A DAY TAKING FLONASE ALLERGY RELIEF 50 MCG/ACT SUSPENSION 1 SPRAY IN EACH NOSTRIL NASALLY ONCE A DAY TAKING GABAPENTIN 100 MG CAPSULE 1 CAPSULE ORALLY BID TAKING OXYCODONE-ACETAMINOPHEN 7.5-325 MG TABLET 1 TABLET ORALLY FOR PAIN 1Q6H PRN FOR PAIN MDD3 NEEDED TAKING MORPHINE SULFATE ER 30 MG TABLET EXTENDED RELEASE 1 TABLET ORALLY CODE D CHRONIC PAIN EVERY 12 HRS MDD=2 TAKING DOXYCYCLINE MONOHYDRATE 100 MG CAPSULE 1 CAPSULE ORALLY ONCE A DAY TAKING BACTRIM DS 800-160 MG TABLET 1 TABLET ORALLY TWICE A DAY UNKNOWN MORPHINE SULFATE ER 15 MG TABLET EXTENDED RELEASE 1 TABLET ORALLY EVERY 12 HRS MDD2 MEDICATION LIST REVIEWED AND RECONCILED WITH THE PATIENT PAST MEDICAL HISTORY NO MAJOR MEDICAL EXCEPT CHRONIC BACK PAIN LYME DISEASE PER NEWLY DIAGNOSED ALLERGIC TO HAY 09/2016 BRADYCARDIA WITH PACEMAKER PLACEMENT 07/2017 ALLERGIES ERYTHROMYCIN: RASH, THROAT SWELLING - ALLERGY LATEX (FOR ALLERGY USE ONLY): RASH - ALLERGY PROPOXYPHENE: NAUSEA, VOMITING - SIDE EFFECTS KETOROLAC TROMETHAMINE: NAUSEA, VOMITING - SIDE EFFECTS CELEBREX: NAUSEA - SIDE EFFECTS DURAMYCIN: RASH, THROAT SWELLING - ALLERGY QUINOLONES: RASH, THROAT SWELLING - ALLERGY GABAPENTIN: HEADACHE - SIDE EFFECTS LORATADINE: SEVERE ANGER - SIDE EFFECTS REVIEW OF SYSTEMS CONSTITUTIONAL: ANY RECENT FEVER NO . CHILLS NO . WEIGHT CHANGE OF UNKNOWN REASONS NO . GASTROENTEROLOGY: NEW UNEXPLAINABLE CHANGES IN BOWEL CONTROL NO . CONSTIPATION NO . GENITOURINARY: ANY NEW CHANGE IN BLADDER CONTROL? NO . NEUROLOGY: NEW ONSET DIZZINESS OR NEUROLOGICAL CHANGES NOT MENTIONED NO . NEW NUMBNESS OR PAIN PATTERNS NOT MENTIONED AND PERTINENT TO TODAY'S VISIT NO . CARDIOLOGY: NEW CHEST PRESSURE NO . PATIENT DENIES NO . RESPIRATORY: UNEXPLAINABLE COUGH NO . NEW SHORTNESS OF BREATH NO . VITAL SIGNS WT 162.4 LBS, HT 67 IN, BMI 25.43 INDEX, BP 134/81 MM HG, HR 60 /MIN, RR 18 /MIN, TEMP 97.6 F, OXYGEN SAT % 98%, SAFE IN ENV? (Y/N) YES, NA INITIALS SC 14:15, REVIEWED BY: Soraya SULTANA REFINERY OPERATOR ASSISTANT. EXAMINATION GENERAL EXAMINATION: GENERALNO ACUTE DISTRESS, WELL NOURISHED AND HYDRATED. PSYCHAPPROPRIATE MOOD AND AFFECT . LUNGS:BIBASILAR CRACKLES . HEART:NO MURMURS, REGULAR RATE AND RHYTHM. ASSESSMENTS INTERVERTEBRAL DISC DISORDER WITH RADICULOPATHY OF LUMBAR REGION - M51.16 (PRIMARY), RISK: (NULL) CHRONIC PRESCRIPTION OPIATE USE - Z79.891, RISK: (NULL) TREATMENT INTERVERTEBRAL DISC DISORDER WITH RADICULOPATHY OF LUMBAR REGION NOTES: 54-YEAR-OLD FEMALE IN FOR CHRONIC PAIN FOLLOW-UP. GIVEN PRESENTING SYMPTOMS RECOMMENDED CONTINUATION OF CURRENT MEDICATION REGIMEN WITH FOLLOW-UP IN 3 MONTHS. PATIENT HAS EXPRESSED UNDERSTANDING OF AND WAS IN AGREEMENT WITH TREATMENT PLAN. GIVEN TIME TO ASK QUESTIONS AND EXPRESS CONCERNS. , [employer] REGISTRY REVIEWED AND DEMONSTRATES COMPLLIANCE. (REF # [id number] ) BRINGS IN MEDICATIONS WHICH IS APPROPRIATE FOR WHAT WAS DISPENSED. RECENT URINE TOXICOLOGY REVIEWED. NO UNAUTHORIZED MEDICATIONS. NO ILLICIT SUBSTANCES AND PRESCRIBED MEDICATIONS WERE PRESENT. CHRONIC PRESCRIPTION OPIATE USE LAB: URINE TEST GROUP PROCEDURE CODES FA211 ESTABILISHED PATIENT [facility] F[facility] CHARGE DISPOSITION & COMMUNICATION FOLLOW UP 3 MONTHS (REASON: LOW BACK PAIN ) ELECTRONICALLY SIGNED BY LEDY EVANS ON 07/11/2020 AT 08:40 AM EDT DISCLAIMER : THIS IS A VISIT SUMMARY EXTRACTED FROM THE [email or web address] CHART. IT IS NOT A COPY OF THE [employer] PROGRESS NOTE. MTDD
== END ==
LOC: M PAIN 14:15
PROVIDERS: ATTEND Family Medicine
DX: M51.16 Intervertebral disc disorders with radiculopathy, lumbar region (principal); G89.29 Other chronic pain; Z95.0 Presence of cardiac pacemaker; Z88.1 Allergy status to other antibiotic agents; Z88.8 Allergy status to other drugs, medicaments and biological substances; Z91.040 Latex allergy status; Z79.891 Long term (current) use of opiate analgesic; Z79.899 Other long term (current) drug therapy

== ENCOUNTER → 2020-08-18 | Outpatient (CLI) | payer OTHER ==
--- NOTE | 2020-08-20 00:02 | ECWPNPC ---
PATIENT NAME: NEENA KIM : 1965 GENDER: FEMALE VISIT DATE: 08/18/2020 DISCHARGE DATE: 08/18/20 1446 VISIT LOCKED DATE TIME: PHYSICIAN: EDMUNDO BELLA RESOURCE: EDMUNDO BELLA REASON FOR APPOINTMENT 1. LOW BACK/MED MNGMT HISTORY OF PRESENT ILLNESS DEPRESSION SCREENIN. PHQ-2 (2015 EDITION) LITTLE INTEREST OR PLEASURE IN DOING THINGS?NOT AT ALL FEELING DOWN, DEPRESSED, OR HOPELESS?NOT AT ALL TOTAL SCORE0 GENERAL: HPI 54-YEAR-OLD FEMALE IN FOR CHRONIC PAIN FOLLOW-UP. SHE RATES HER PAIN CURRENTLY AT AN 8 OUT OF 10 AND DESCRIBES IT CONTINUOUS AND THROBBING. PATIENT FEELS HER MEDICATIONS ARE HELPFUL AND DENIES MED SIDE EFFECTS AT THIS TIME. DOI: 2001. -. FALL RISK SCREENING: SCREENING TWO FALLS REPORTED IN THE LAST YEAR WITHOUT INJURY.. PAIN SCREENING: PATIENT HAS A COMPLAINT OF ACUTE OR CHRONIC PAIN :YES LOCATION OF PAIN:LOW BACK INTENSITY OF PAIN (SCALE OF 1 TO 10):8 WHAT DOES YOUR PAIN FEEL LIKE:CONTINOUS, THROBBING DURATION:CONTINOUS, CONSTANT, AWAKENS FROM SLEEP PAIN IS INCREASED BY:ACTIVITIES, PROLONGED STANDING PAIN IS DECREASED BY:USE OF PAIN MEDICATIONS, SITTING, OTHERS HEAT AND ICE NURSING NOTE: -. PAIN CENTER INTAKE QUESTIONS: DO YOU HAVE A HISTORY OF MRSA? :NO DO YOU TAKE A BLOOD THINNERS? :NO DO YOU HAVE ANY BLEEDING DISORDERS? :NO ANY NEW NUMBNESS OR WEAKNESS IN YOUR LEGS OR ARMS? :NO ANY PACEMAKER,DEFIBRILLATOR, OR DORSAL COLUMN STIMULATOR? :YES PT STATES SHE HAS A PACEMAKER. DO YOU HAVE ANY RASHES OR OPEN SORES? :NO ARE YOU ALLERGIC TO IV DYE? :NO ARE YOU DIABETIC? :NO ANY NEW PROBLEMS WITH YOUR MEDICATIONS? :NO HAVE YOU RECEIVED A VACCINE IN THE PAST 30 DAYS? :NO DO YOU PLAN TO RECEIVE A VACCINE IN THE NEXT 21 DAYS? :NO DO YOU NEED ANY PRESCRIPTION? :NO DO YOU TAKE ANY IMMUNOSUPPRESSIVE MEDICATIONS? :NO IS THERE A CHANCE YOU COULD BE ? :NO ARE YOU BREAST FEEDING? :NO CURRENT MEDICATIONS TAKING VITAMIN D3 56059 UNIT TABLET ORALLY MONTHLY TAKING LORATADINE 10 MG TABLET 1 TABLET ORALLY ONCE A DAY TAKING FLONASE ALLERGY RELIEF 50 MCG/ACT SUSPENSION 1 SPRAY IN EACH NOSTRIL NASALLY ONCE A DAY TAKING GABAPENTIN 100 MG CAPSULE 1 CAPSULE ORALLY BID TAKING OXYCODONE-ACETAMINOPHEN 7.5-325 MG TABLET 1 TABLET ORALLY FOR PAIN 1Q6H PRN FOR PAIN MDD3 NEEDED TAKING MORPHINE SULFATE ER 30 MG TABLET EXTENDED RELEASE 1 TABLET ORALLY CODE D CHRONIC PAIN EVERY 12 HRS MDD=2 NOT-TAKING DOXYCYCLINE MONOHYDRATE 100 MG CAPSULE 1 CAPSULE ORALLY ONCE A DAY NOT-TAKING BACTRIM DS 800-160 MG TABLET 1 TABLET ORALLY TWICE A DAY NOT-TAKING MORPHINE SULFATE ER 15 MG TABLET EXTENDED RELEASE 1 TABLET ORALLY EVERY 12 HRS MDD2 MEDICATION LIST REVIEWED AND RECONCILED WITH THE PATIENT PAST MEDICAL HISTORY NO MAJOR MEDICAL EXCEPT CHRONIC BACK PAIN LYME DISEASE PER NEWLY DIAGNOSED ALLERGIC TO HAY 09/2016 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 COUNSELED THE PATIENT ON SMOKING EFFECTS, EDUCATION [id number]/06/2021 HOW MANY CIGARETTES A DAY DO YOU SMOKE?11-20 HOW SOON AFTER YOU WAKE UP DO YOU SMOKE YOUR FIRST CIGARETTE?31-60 MIN HOW OFTEN DO YOU SMOKE CIGARETTES?EVERY DAY PATIENT COUNSELED ON THE DANGERS OF TOBACCO USE AND URGED TO QUIT:01/15/2020 SMOKING CESSATION INFORMATION GIVEN08/24/2019 ALCOHOL USE: NO. LUNG CANCER SCREENING SMOKING STATUS:CURRENT SMOKER ALCOHOL SCREENING DID YOU HAVE A DRINK CONTAINING ALCOHOL IN THE PAST YEAR?NO POINTS0 INTERPRETATIONNEGATIVE RECREATIONAL DRUG USE DRUG USE?NO CAFFEINE CAFFEINE USE?YES HOW OFTEN AND HOW MUCH? 2-3 CUPS OF COFFEE A DAY SEXUAL HX HAD SEX IN THE LAST 12 MONTHS (VAGINAL, ORAL, OR ANAL)?YES WITHMEN ONLY HAVE YOU EVER HAD AN STD?NO RELIGIOUS [id number] MORMONISM LANGUAGE LANGUAGES SPOKEN:BERMUDIAN EDUCATION LEVEL OF EDUCATION:NOT FINISHED COLLEGE LEARNING BARRIERS / SPECIAL NEEDS CHANGE FROM LAST VISIT?NO BARRIERS TO LEARNING?NO HEARING IMPAIRED?NO VISION IMPAIRED?YES :CORRECTIVE LENSES COGNITIVELY IMPAIRED?NO READINESS TO LEARN?YES LEARNING PREFERENCES?NO EMOTIONAL BARRIERS?NO SPECIAL DEVICES?NO POURER OFF NEEDED?NO DOMESTIC VIOLENCE DO YOU FEEL SAFE IN YOUR ENVIRONMENT?YES OCCUPATION: DISABLED. DIET: REGULAR. EXERCISE: WALKS. MARITAL STATUS: . TODAY'S VISITNOTES FROM 0-10, WHAT LEVEL IS YOUR PAIN TODAY?3 - PFS REFERRAL NEEDED?NO CLERGY REFERRAL NEEDED?NO PUBLIC HEALTH REFERRAL NEEDED?NO WAS THE PROVIDER NOTIFIED OF ANY PERTINENT INFO? N/A HAS THE PATIENT BEEN EDUCATED REGARDING HIS/HER PLAN OF CARE?YES HAS THE PATIENT BEEN EDUCATED REGARDING PAIN, THE RISK FOR PAIN, THE IMPORTANCE OF EFFECTIVE PAIN MANAGEMENT, AND THE PAIN ASSESSMENT PROCESS?YES ADVANCE DIRECTIVE ADVANCE DIRECTIVE DISCUSSED WITH PATIENT:YES HCP-DAUGHTER - PATRICA STAFFORD [phone] REVIEWED WITH PT 02/13/18 1107 BV03/27/18 1408 REVIEWED WITH PT. 08/21/18 1455 REVIEWED WITH PT LASREVIEWED WITH PATIENT 12/16/18 1338 NLJ. REVIEW OF SYSTEMS CONSTITUTIONAL: ANY RECENT FEVER NO . CHILLS NO . WEIGHT CHANGE OF UNKNOWN REASONS NO . GASTROENTEROLOGY: NEW UNEXPLAINABLE CHANGES IN BOWEL CONTROL NO . CONSTIPATION NO . GENITOURINARY: ANY NEW CHANGE IN BLADDER CONTROL? NO . NEUROLOGY: NEW ONSET DIZZINESS OR NEUROLOGICAL CHANGES NOT MENTIONED NO . NEW NUMBNESS OR PAIN PATTERNS NOT MENTIONED AND PERTINENT TO TODAY'S VISIT NO . CARDIOLOGY: NEW CHEST PRESSURE NO . PATIENT DENIES NO . RESPIRATORY: UNEXPLAINABLE COUGH NO . NEW SHORTNESS OF BREATH NO . VITAL SIGNS WT 161.8 LBS, HT 67 IN, BMI 25.34 INDEX, BP 116/74 MM HG, HR 60 /MIN, RR 18 /MIN, TEMP 98.3 F, OXYGEN SAT % 97%, SAFE IN ENV? (Y/N) YES, NA INITIALS GA 14:12, REVIEWED BY: KUNAL MIMS MA. EXAMINATION GENERAL EXAMINATION: GENERALNO ACUTE DISTRESS, WELL NOURISHED AND HYDRATED. PSYCHAPPROPRIATE MOOD AND AFFECT . LUNGS:CLEAR TO AUSCULTATION BILATERALLY, NO WHEEZES, RHONCHI, RALES. HEART:NO MURMURS, REGULAR RATE AND RHYTHM. ASSESSMENTS INTERVERTEBRAL DISC DISORDER WITH RADICULOPATHY OF LUMBAR REGION - M51.16 (PRIMARY), RISK: (NULL) TREATMENT INTERVERTEBRAL DISC DISORDER WITH RADICULOPATHY OF LUMBAR REGION NOTES: 54-YEAR-OLD FEMALE FOR CHRONIC PAIN FOLLOW-UP. GIVEN PRESENTING SYMPTOMS RECOMMENDED CONTINUATION OF CURRENT MEDICATION REGIMEN WITH FOLLOW-UP IN 3 MONTHS. PATIENT HAS EXPRESSED UNDERSTANDING OF AND WAS IN AGREEMENT WITH TREATMENT PLAN. GIVEN TIME TO ASK QUESTIONS AND EXPRESS CONCERNS. [employer] REGISTRY REVIEWED AND DEMONSTRATES COMPLLIANCE. (REF # [id number] ) BRINGS IN MEDICATIONS WHICH IS APPROPRIATE FOR WHAT WAS DISPENSED. RECENT URINE TOXICOLOGY REVIEWED. NO UNAUTHORIZED MEDICATIONS. NO ILLICIT SUBSTANCES AND PRESCRIBED MEDICATIONS WERE PRESENT. PROCEDURES PN WORKMANS' COMP OPINION IN YOUR OPINION, WAS THE INCIDENT THAT THE PATIENT DESCRIBED THE COMPETENT MEDICAL CAUSE OF THIS INJURY/ILLNESS? YES ARE THE PATIENT'S COMPLAINTS CONSISTENT WITH HIS/HER HISTORY OF THE INJURY/ILLNESS? YES IS THE PATIENT'S HISTORY OF THE INJURY/ILLNESS CONSISTENT WITH YOUR OBJECTIVE FINDING? YES WHAT IS THE PERCENTAGE OF TEMPORARY IMPAIRMENT? MODERATE TO MARKED = 66.7% IS THE PATIENT WORKING? YES DOCTOR ON SITE: JOSE BUSTAMANTE MD PROCEDURE CODES FA211 ESTABILISHED PATIENT [facility] CHARGE DISPOSITION & COMMUNICATION FOLLOW UP 3 MONTHS (REASON: LOW BACK PAIN ) ELECTRONICALLY SIGNED BY LEDY EVANS ON 08/19/2020 AT 01:36 PM EDT DISCLAIMER : THIS IS A VISIT SUMMARY EXTRACTED FROM THE [employer] CHART. IT IS NOT A COPY OF THE [employer] PROGRESS NOTE. KEENA
== END ==
LOC: M PAIN 14:30
PROVIDERS: ATTEND Family Medicine
DX: M51.16 Intervertebral disc disorders with radiculopathy, lumbar region (principal); G89.29 Other chronic pain; F17.210 Nicotine dependence, cigarettes, uncomplicated; Z88.1 Allergy status to other antibiotic agents; Z88.8 Allergy status to other drugs, medicaments and biological substances; Z91.040 Latex allergy status; Z79.891 Long term (current) use of opiate analgesic; Z79.899 Other long term (current) drug therapy

== ENCOUNTER → 2020-11-18 | Outpatient (CLI) | payer OTHER ==
[~2020-11-18] MED LIST changes: -MOME50SP; +NASO50SP3; -OXYC1TAB15 PO; +OXYC7.5T3 PO
== END ==
LOC: M PAIN 11:15
PROVIDERS: ATTEND Family Medicine
DX: M47.816 Spondylosis without myelopathy or radiculopathy, lumbar region (principal); G89.29 Other chronic pain; F17.210 Nicotine dependence, cigarettes, uncomplicated; Z88.1 Allergy status to other antibiotic agents; Z88.6 Allergy status to analgesic agent; Z88.8 Allergy status to other drugs, medicaments and biological substances; Z91.040 Latex allergy status; Z79.891 Long term (current) use of opiate analgesic; Z79.899 Other long term (current) drug therapy

== ENCOUNTER → 2021-10-10 | Outpatient (CLI) | payer OTHER | LOC: M RAD 10:01 | PROVIDERS: ATTEND Nurse Practitioner Family | DX: M51.36 Other intervertebral disc degeneration, lumbar region (principal) ==

== ENCOUNTER → 2022-02-26 | Outpatient (CLI) | payer OTHER ==
[~2022-02-26] MED LIST changes: +ISOVUE-M 300 61% 15ML VIAL As Ordered ONE; +LIDOCAINE 1% SDV 30ML VIAL As Ordered ONE; +diazePAM 5MG TABLET As Ordered ONE; +methylPREDNISolone SUSP 40MG/ML 1ML VIAL (DEPO MEDROL) As Ordered ONE; +oxyCODONE 5MG TAB As Ordered ONE
== END ==
LOC: M PAIN 10:00
PROVIDERS: ATTEND Anesthesiology
DX: M51.16 Intervertebral disc disorders with radiculopathy, lumbar region (principal); G89.29 Other chronic pain; F17.210 Nicotine dependence, cigarettes, uncomplicated; Z95.0 Presence of cardiac pacemaker; Z88.1 Allergy status to other antibiotic agents; Z88.6 Allergy status to analgesic agent; Z88.8 Allergy status to other drugs, medicaments and biological substances; Z91.040 Latex allergy status; Z79.891 Long term (current) use of opiate analgesic; Z79.899 Other long term (current) drug therapy
CPT/HCPCS: 62323; J1030

== ENCOUNTER → 2022-03-20 | Outpatient (CLI) | payer OTHER ==
[~2022-03-20] MED LIST changes: -ISOVUE-M 300 61% 15ML VIAL As Ordered ONE; -LIDOCAINE 1% SDV 30ML VIAL As Ordered ONE; -diazePAM 5MG TABLET As Ordered ONE; -methylPREDNISolone SUSP 40MG/ML 1ML VIAL (DEPO MEDROL) As Ordered ONE; -oxyCODONE 5MG TAB As Ordered ONE
== END ==
LOC: M PAIN 10:30
PROVIDERS: ATTEND Anesthesiology
DX: G89.29 Other chronic pain (principal); M48.062 Spinal stenosis, lumbar region with neurogenic claudication; M51.16 Intervertebral disc disorders with radiculopathy, lumbar region; F17.210 Nicotine dependence, cigarettes, uncomplicated; Z95.0 Presence of cardiac pacemaker; Z88.1 Allergy status to other antibiotic agents; Z88.5 Allergy status to narcotic agent; Z88.8 Allergy status to other drugs, medicaments and biological substances; Z91.040 Latex allergy status; Z79.891 Long term (current) use of opiate analgesic; Z79.899 Other long term (current) drug therapy

== ENCOUNTER → 2022-04-11 | Outpatient (CLI) | payer OTHER | LOC: M PAIN 15:15 → M TMPAIN 15:15 | PROVIDERS: ATTEND Anesthesiology | DX: M51.16 Intervertebral disc disorders with radiculopathy, lumbar region (principal); M48.061 Spinal stenosis, lumbar region without neurogenic claudication; F17.210 Nicotine dependence, cigarettes, uncomplicated; Z95.0 Presence of cardiac pacemaker; Z88.1 Allergy status to other antibiotic agents; Z88.6 Allergy status to analgesic agent; Z88.8 Allergy status to other drugs, medicaments and biological substances; Z91.040 Latex allergy status; Z79.51 Long term (current) use of inhaled steroids; Z79.891 Long term (current) use of opiate analgesic; Z79.899 Other long term (current) drug therapy ==

== ENCOUNTER → 2022-05-16 | Outpatient (CLI) | payer OTHER | LOC: M PAIN 15:00 | PROVIDERS: ATTEND Anesthesiology | DX: M51.16 Intervertebral disc disorders with radiculopathy, lumbar region (principal); M48.062 Spinal stenosis, lumbar region with neurogenic claudication; F17.210 Nicotine dependence, cigarettes, uncomplicated; Z95.0 Presence of cardiac pacemaker; Z88.1 Allergy status to other antibiotic agents; Z88.6 Allergy status to analgesic agent; Z88.8 Allergy status to other drugs, medicaments and biological substances; Z91.040 Latex allergy status; Z79.51 Long term (current) use of inhaled steroids; Z79.891 Long term (current) use of opiate analgesic; Z79.899 Other long term (current) drug therapy ==

== ENCOUNTER → 2022-08-30 | Outpatient (CLI) | payer OTHER ==
[~2022-08-30] MED LIST changes: +BUPIVACAINE HCL 0.25% 30ML VIAL As Ordered ONE; +ISOVUE-M 300 61% 15ML VIAL As Ordered ONE; +LIDOCAINE 1% SDV 30ML VIAL As Ordered ONE; +NORCO, ANEXSIA 5/325MG TABLET (HYDROcodone/ACETAMINOPHEN) As Ordered ONE; +diazePAM 5MG TABLET As Ordered ONE
== END ==
LOC: M PAIN 11:30
PROVIDERS: ATTEND Anesthesiology
DX: M51.16 Intervertebral disc disorders with radiculopathy, lumbar region (principal); G89.29 Other chronic pain; F17.210 Nicotine dependence, cigarettes, uncomplicated; Z95.0 Presence of cardiac pacemaker; Z88.1 Allergy status to other antibiotic agents; Z88.6 Allergy status to analgesic agent; Z88.8 Allergy status to other drugs, medicaments and biological substances; Z79.51 Long term (current) use of inhaled steroids; Z79.891 Long term (current) use of opiate analgesic; Z79.899 Other long term (current) drug therapy
CPT/HCPCS: 64483; J1100; Q9967; S0020

== ENCOUNTER → 2022-10-03 | Outpatient (CLI) | payer OTHER ==
[~2022-10-03] MED LIST changes: -BUPIVACAINE HCL 0.25% 30ML VIAL As Ordered ONE; -ISOVUE-M 300 61% 15ML VIAL As Ordered ONE; -LIDOCAINE 1% SDV 30ML VIAL As Ordered ONE; -NORCO, ANEXSIA 5/325MG TABLET (HYDROcodone/ACETAMINOPHEN) As Ordered ONE; -diazePAM 5MG TABLET As Ordered ONE
== END ==
LOC: M PAIN 10:45
PROVIDERS: ATTEND Anesthesiology
DX: M51.16 Intervertebral disc disorders with radiculopathy, lumbar region (principal); G89.29 Other chronic pain; Z95.0 Presence of cardiac pacemaker; J30.1 Allergic rhinitis due to pollen; Z79.891 Long term (current) use of opiate analgesic; Z79.899 Other long term (current) drug therapy; Z88.1 Allergy status to other antibiotic agents; Z88.8 Allergy status to other drugs, medicaments and biological substances; Z91.040 Latex allergy status

== ENCOUNTER → 2022-11-29 | Outpatient (CLI) | payer OTHER, MEDICARE | LOC: M PAIN 11:30 | PROVIDERS: ATTEND Anesthesiology | DX: M48.062 Spinal stenosis, lumbar region with neurogenic claudication (principal); M51.16 Intervertebral disc disorders with radiculopathy, lumbar region; G89.29 Other chronic pain; F17.210 Nicotine dependence, cigarettes, uncomplicated; Z95.0 Presence of cardiac pacemaker; Z88.1 Allergy status to other antibiotic agents; Z88.8 Allergy status to other drugs, medicaments and biological substances; Z91.040 Latex allergy status; Z79.891 Long term (current) use of opiate analgesic; Z79.899 Other long term (current) drug therapy ==

== ENCOUNTER → 2022-12-06 | Outpatient (CLI) | payer OTHER, MEDICARE | LOC: M PAIN 09:45 | PROVIDERS: ATTEND Anesthesiology | DX: Z53.29 Procedure and treatment not carried out because of patient's decision for other reasons (principal) ==

== ENCOUNTER → 2022-12-07 | Outpatient (CLI) | payer OTHER, MEDICARE | LOC: M PAIN 08:30 | PROVIDERS: ATTEND Anesthesiology | DX: M51.16 Intervertebral disc disorders with radiculopathy, lumbar region (principal); G89.29 Other chronic pain; F17.210 Nicotine dependence, cigarettes, uncomplicated; Z95.0 Presence of cardiac pacemaker; Z88.1 Allergy status to other antibiotic agents; Z88.6 Allergy status to analgesic agent; Z88.8 Allergy status to other drugs, medicaments and biological substances; Z79.891 Long term (current) use of opiate analgesic; Z79.899 Other long term (current) drug therapy ==

== ENCOUNTER → 2023-01-23 | Outpatient (CLI) | payer OTHER, MEDICARE | LOC: M PAIN 10:30 | PROVIDERS: ATTEND Anesthesiology | DX: M51.16 Intervertebral disc disorders with radiculopathy, lumbar region (principal); G89.29 Other chronic pain; F17.210 Nicotine dependence, cigarettes, uncomplicated; Z95.0 Presence of cardiac pacemaker; Z80.8 Family history of malignant neoplasm of other organs or systems; Z80.1 Family history of malignant neoplasm of trachea, bronchus and lung; Z88.1 Allergy status to other antibiotic agents; Z88.8 Allergy status to other drugs, medicaments and biological substances; Z91.040 Latex allergy status; Z79.891 Long term (current) use of opiate analgesic; Z79.899 Other long term (current) drug therapy ==

== ENCOUNTER 2023-03-03 14:41 | Emergency (ER) | payer OTHER ==
[~2023-03-03] VITALS: Ht 170.2 cm; Wt 76.4 kg
[2023-03-03 14:48] VITALS: BP 149/72; TEMP 97.5; O2SAT 100
[2023-03-03] MEDS ORDERED: TIZA10TA (15:03)
== END 2023-03-03 18:30 | disposition left against medical advice (07) ==
LOC: M ED 14:41
DX: Z53.21 Procedure and treatment not carried out due to patient leaving prior to being seen by health care provider (principal)

== ENCOUNTER → 2023-04-01 | Outpatient (CLI) | payer OTHER, MEDICARE ==
[~2023-04-01] MED LIST changes: +TIZA10TA
== END ==
LOC: M PAIN 16:00
PROVIDERS: ATTEND Nurse Practitioner Family
DX: M51.16 Intervertebral disc disorders with radiculopathy, lumbar region (principal); G89.29 Other chronic pain; F17.210 Nicotine dependence, cigarettes, uncomplicated; Z95.0 Presence of cardiac pacemaker; Z80.8 Family history of malignant neoplasm of other organs or systems; Z88.1 Allergy status to other antibiotic agents; Z88.8 Allergy status to other drugs, medicaments and biological substances; Z91.040 Latex allergy status; Z79.891 Long term (current) use of opiate analgesic; Z79.899 Other long term (current) drug therapy

== ENCOUNTER → 2023-04-25 | Outpatient (CLI) | payer OTHER, MEDICARE | LOC: M PAIN 16:30 | PROVIDERS: ATTEND Anesthesiology | DX: M51.16 Intervertebral disc disorders with radiculopathy, lumbar region (principal); Z79.891 Long term (current) use of opiate analgesic; G89.29 Other chronic pain; Z95.0 Presence of cardiac pacemaker; R00.1 Bradycardia, unspecified; F17.210 Nicotine dependence, cigarettes, uncomplicated; Z79.899 Other long term (current) drug therapy; Z88.1 Allergy status to other antibiotic agents; Z88.8 Allergy status to other drugs, medicaments and biological substances; Z91.040 Latex allergy status ==

== ENCOUNTER → 2023-07-17 | Outpatient (CLI) | payer OTHER, MEDICARE | LOC: M PAIN 08:30 | PROVIDERS: ATTEND Anesthesiology | DX: M51.16 Intervertebral disc disorders with radiculopathy, lumbar region (principal); Z79.891 Long term (current) use of opiate analgesic; M48.062 Spinal stenosis, lumbar region with neurogenic claudication; G89.29 Other chronic pain; Z79.899 Other long term (current) drug therapy; F17.210 Nicotine dependence, cigarettes, uncomplicated; Z88.1 Allergy status to other antibiotic agents; Z88.8 Allergy status to other drugs, medicaments and biological substances; Z91.040 Latex allergy status ==

== ENCOUNTER → 2023-08-19 | Outpatient (CLI) | payer OTHER, MEDICARE | LOC: M PAIN 15:30 | PROVIDERS: ATTEND Nurse Practitioner Family | DX: M51.16 Intervertebral disc disorders with radiculopathy, lumbar region (principal); Z79.891 Long term (current) use of opiate analgesic; M48.062 Spinal stenosis, lumbar region with neurogenic claudication; G89.29 Other chronic pain; R00.1 Bradycardia, unspecified; Z95.0 Presence of cardiac pacemaker; F17.210 Nicotine dependence, cigarettes, uncomplicated; Z79.899 Other long term (current) drug therapy; Z88.1 Allergy status to other antibiotic agents; Z88.8 Allergy status to other drugs, medicaments and biological substances; Z91.040 Latex allergy status ==

== ENCOUNTER → 2023-09-25 | Outpatient (CLI) | payer OTHER | LOC: M PAIN 11:15 | PROVIDERS: ATTEND Anesthesiology | DX: M48.061 Spinal stenosis, lumbar region without neurogenic claudication (principal); Z79.891 Long term (current) use of opiate analgesic; M51.16 Intervertebral disc disorders with radiculopathy, lumbar region; F17.200 Nicotine dependence, unspecified, uncomplicated; Z79.899 Other long term (current) drug therapy; Z95.0 Presence of cardiac pacemaker; Z88.1 Allergy status to other antibiotic agents; Z88.5 Allergy status to narcotic agent; Z88.8 Allergy status to other drugs, medicaments and biological substances; Z91.048 Other nonmedicinal substance allergy status ==

== ENCOUNTER → 2024-01-03 | Outpatient (CLI) | payer OTHER | LOC: M PAIN 17:00 | PROVIDERS: ATTEND Nurse Practitioner Family | DX: M51.16 Intervertebral disc disorders with radiculopathy, lumbar region (principal); Z79.891 Long term (current) use of opiate analgesic; M48.062 Spinal stenosis, lumbar region with neurogenic claudication; Z95.0 Presence of cardiac pacemaker; R00.1 Bradycardia, unspecified; F17.210 Nicotine dependence, cigarettes, uncomplicated; Z79.899 Other long term (current) drug therapy; Z88.1 Allergy status to other antibiotic agents; Z88.8 Allergy status to other drugs, medicaments and biological substances; Z91.040 Latex allergy status ==

== ENCOUNTER → 2024-03-30 | Outpatient (CLI) | payer OTHER | LOC: M PAIN 11:00 | PROVIDERS: ATTEND Nurse Practitioner Family | DX: M51.16 Intervertebral disc disorders with radiculopathy, lumbar region (principal); Z79.891 Long term (current) use of opiate analgesic; M48.062 Spinal stenosis, lumbar region with neurogenic claudication; G89.29 Other chronic pain; F17.210 Nicotine dependence, cigarettes, uncomplicated; Z79.899 Other long term (current) drug therapy; Z88.1 Allergy status to other antibiotic agents; Z88.8 Allergy status to other drugs, medicaments and biological substances; Z91.040 Latex allergy status ==

== ENCOUNTER → 2024-05-27 | Outpatient (CLI) | payer OTHER | LOC: M PAIN 14:15 | PROVIDERS: ATTEND Anesthesiology | DX: M47.816 Spondylosis without myelopathy or radiculopathy, lumbar region (principal); F17.210 Nicotine dependence, cigarettes, uncomplicated; Z79.891 Long term (current) use of opiate analgesic; Z79.899 Other long term (current) drug therapy; Z88.1 Allergy status to other antibiotic agents; Z88.8 Allergy status to other drugs, medicaments and biological substances; Z91.040 Latex allergy status ==

== ENCOUNTER → 2024-06-10 | Outpatient (CLI) | payer OTHER | LOC: M PAIN 14:45 | PROVIDERS: ATTEND Anesthesiology | DX: M51.16 Intervertebral disc disorders with radiculopathy, lumbar region (principal); G89.29 Other chronic pain; F17.210 Nicotine dependence, cigarettes, uncomplicated; Z79.51 Long term (current) use of inhaled steroids; Z79.891 Long term (current) use of opiate analgesic; Z79.899 Other long term (current) drug therapy; Z80.0 Family history of malignant neoplasm of digestive organs; Z80.1 Family history of malignant neoplasm of trachea, bronchus and lung; Z80.3 Family history of malignant neoplasm of breast; Z80.41 Family history of malignant neoplasm of ovary; Z80.8 Family history of malignant neoplasm of other organs or systems; Z88.1 Allergy status to other antibiotic agents; Z88.6 Allergy status to analgesic agent; Z88.8 Allergy status to other drugs, medicaments and biological substances; Z91.040 Latex allergy status ==